=== PATIENT | male | born 2000 | race Two or more races ===

== ENCOUNTER 2023-11-01 17:31 | Observation (INO) ==
[2023-11-01] MEDS ORDERED: NS 1,000 ML IV 1,000 ML ONE (17:50)
--- NOTE | 2023-11-01 17:53 | DR.ABDMALE ---
HPI Time seen Time Seen by Provider: 11/01/23 17:47 PCP Primary Care Physician: NFD Complaint Chief Complaint Doctors Comments: 23-year-old male presents for evaluation. Gradual onset of abdominal pain 2 days ago. Pain has become more steady, worsened today. Pain located in the right lower quadrant, does not radiate. Pain is worse with palpation, movement and hitting bumps in the car. Nothing makes it better. He has had decreased appetite over the past 2 days. Denies fever, chills, upper respiratory symptoms, bowel or bladder issues. No history of abdominal surgeries in the past. Chief Complaint:: Pt states that she has had right lower quadrant pain since monday. He states that he vomited x5 on monday but none since then. Pt states that he has used tylenol and woodrow-seltzer without relief. COVID-19 Coronavirus risk:travel/contact w/high risk person: No Has patient experienced Coronavirus symptoms: No Reviewed Nurses Notes Review: Yes Source History provided by:: Patient Mode of arrival Mode of Arrival: Ambulatory Timing Onset of Chief Complaint: 10/30/23 PMH PMH Past Medical History: No Past Surgical History: Yes Surgical History: Ortho Surgery Family History History of Family Medical Conditions: No Social History Does patient currently use any type of tobacco product: Yes Have you used tobacco products in the last 12 months: Yes Type of Tobacco Use: Vape Does any household member use tobacco: No Alcohol Use: None Do you use any recreational Drugs:: No Lives With: Family Lives Where: Home Travel Risk Coronavirus risk:travel/contact w/high risk person: No Has patient experienced Coronavirus symptoms: No Infectious screening Have you traveled outside the country in the last 6 months?: No Isolation: Standard ROS Review of Systems Constitutional: No Symptoms Reported Eyes: No Symptoms Reported ENTM: No Symptoms Reported Respiratoy: No Symptoms Reported Cardiovascular: No Symptoms Reported Gastrointestinal/Abdominal: See HPI Genitourinary: No Symptoms Reported Neurological: No Symptoms Reported Musculoskeletal: No Symptoms Reported Integumentary: No Symptoms Reported Hematologic/Lymphatic: No Symptoms Reported All Other Systems: Reviewed and Negative PE Vital Signs Vital Signs: Temp Pulse Pulse Resp BP BP Pulse Ox 11/01/23 17:31 111/80 11/01/23 17:31 98.4 F 110 H 20 125/61 99 11/01/23 17:31 98.4 F 110 H 20 125/61 99 O2 Del Method 11/01/23 17:31 11/01/23 17:31 11/01/23 17:31 Room Air General General Appearance: Alert and In No Apparent Distress Eyes Eye exam: PERRL and EOMI ENT ENT Exam: Mucous Membranes Moist Neck Neck Exam: Normal Inspection Respiratory Respiratory Exam: Normal Lung Sounds Bilat; negative Accessory Muscle Use or Respiratory Distress Cardiovascular Cardiovascular Exam: Regular Rate, Normal Rhythm and Normal Heart Sounds Abdominal Exam Abdominal Exam: Normal Bowel Sounds, Soft and Tenderness (Right lower quadrant, with guarding and rebound, both direct and indirect rebound) Back Back Exam: Normal Inspection Extremeties Extremities Exam: Normal Inspection and Full ROM; negative Edema Neurologic Neurological Exam: Alert, Oriented X3 and CN II-XII Intact; negative Motor Sensory Deficit Skin Skin Exam: Warm and Dry COURSE Treatment Treatment: 23-year-old male with worsening right lower quadrant pain over the past 2 days. Marked guarding and rebound of the right lower quadrant. Presentation highly concerning for acute appendicitis. Workup initiated. Patient instructed to remain n.p.o., ate pizza prior to arrival. Patient given IV fluids. 1847 -labs showed elevated white count. CT of the abdomen pelvis o btained.. Appears to have inflammation of the right lower quadrant with an appendicolith present to me. On-call surgery, Dr. Bansal, made aware. Coming to see the patient after he finishes a procedure. [id number] - seen by Dr Bansal, will be going to the OR. [facility] Labs Reviewed Laboratory Results Reviewed?: Yes 11/01/23 17:55 11/01/23 17:55 Laboratory: WBC 19.7 X10^3/uL (3.6-10.0) H 11/01/23 17:55 RBC 5.34 X10^6/uL (4.7-6.0) 11/01/23 17:55 Hgb 14.6 g/dL (13.5-18.0) 11/01/23 17:55 Hct 42.4 % (42.0-54.0) 11/01/23 17:55 MCV 79.4 fL (80.0-100.0) L 11/01/23 17:55 MCH 27.4 pg (27.0-34.0) 11/01/23 17:55 MCHC 34.5 g/dL (33.0-35.0) 11/01/23 17:55 RDW 15.0 % (11.6-16.5) 11/01/23 17:55 Plt Count 208 X10^3/uL (150.0-450.0) 11/01/23 17:55 MPV 8.5 fL (7.4-11.0) 11/01/23 17:55 Neut % (Auto) 85.7 % (42.0-75.0) H 11/01/23 17:55 Lymph % (Auto) 8.9 % (21.0-51.0) L 11/01/23 17:55 [place] % (Auto) 5.0 % (0.0-13.0) 11/01/23 17:55 Eos % (Auto) 0.2 % (0.9-2.9) L 11/01/23 17:55 Baso % (Auto) 0.2 % (0.2-1.0) 11/01/23 17:55 Neut # (Auto) 16.9 x10^3/uL (2.2-4.8) H 11/01/23 17:55 Lymph # (Auto) 1.7 X10^3/uL (1.3-2.9) 11/01/23 17:55 [place] # (Auto) 1.0 x10^3/uL (0.3-0.8) H 11/01/23 17:55 Eos # (Auto) 0.0 x10^3/uL (0.0-0.2) 11/01/23 17:55 Baso # (Auto) 0.0 X10^3/uL (0.0-0.1) 11/01/23 17:55 Absolute Nucleated RBC 0.0 /100WBC 11/01/23 17:55 Sodium 137 mmol/L (136-145) 11/01/23 17:55 Corrected Sodium TNP 11/01/23 17:55 Potassium 3.8 mmol/L (3.5-5.1) 11/01/23 17:55 Chloride 101 mmol/L (98-107) 11/01/23 17:55 Carbon Dioxide 30.2 mmol/L (21-32) 11/01/23 17:55 BUN 8 mg/dL (7-18) 11/01/23 17:55 Creatinine 0.82 mg/dL (0.70-1.30) 11/01/23 17:55 Est GFR (MDRD) Af Amer > 60 (>60) 11/01/23 17:55 Est GFR (MDRD) Non-Af > 60 (>60) 11/01/23 17:55 Glucose 110 mg/dL (65-99) H 11/01/23 17:55 Calcium 8.9 mg/dL (8.5-10.1) 11/01/23 17:55 Corrected Calcium TNP 11/01/23 17:55 Total Bilirubin 2.80 mg/dL (0.2-1.0) H 11/01/23 17:55 AST 17 Units/L (15-37) 11/01/23 17:55 ALT 30 Units/L (12-78) 11/01/23 17:55 Alkaline Phosphatase 57 Units/L (46-116) 11/01/23 17:55 Total Protein 7.8 g/dL (6.4-8.2) 11/01/23 17:55 Albumin 3.7 g/dL (3.4-5.0) 11/01/23 17:55 Globulin 4.1 g/dL (2.5-4.5) 11/01/23 17:55 Albumin/Globulin Ratio 0.9 Ratio (1.1-2.1) L 11/01/23 17:55 Lipase 56 Units/L (16-77) 11/01/23 17:55 White count elevated to 19,000 XRAY XRAY Interpreted by: Both X-ray Results: EXAM: ABDOMEN/PELVIS W/O CON HISTORY: right lower quadrant pain since monday. He states that he vomited x5 on monday but none since then. Pt states that he has used tylenol and woodrow-seltzer without relief.; COMPARISON: None. TECHNIQUE: Nonenhanced spiral CT imaging was performed through the abdomen and pelvis and axial, coronal, and sagittal CT images were generated. FINDINGS: The lung bases are clear without effusion. Heart size is normal. The liver, gallbladder, pancreas, adrenal glands are normal. The spleen is enlarged at 15.8 cm. The kidneys are both normal in size and there is no renal mass, stone, or hydronephrosis. There is mild urinary bladder wall thickening. Prostate is normal. The stomach is normal. Most of the small bowel loops are normal. There is inflammation of the terminal ileum and also of the appendix and the cecum. There is inflammation in the fat in this area. This appears to be acute appendicitis but the differential includes Crohn's disease. Large bowel loops are normal. The bones are normal. IMPRESSION: Fairly severe inflammation in the right lower quadrant and the epicenter appears to be appendicitis. Differential includes Crohn's disease or infectious ileocecal hiatus. THIS IS AN ELECTRONICALLY VERIFIED FINAL REPORT 11/01/2023 7:13 PM - Electronically signed by Foster Baker MD Opioid Opioid Risk Tool Age (Alin box if 16-45): Yes History of Preadolescent Sexual Abuse: No Total: 1 Total Score Risk Category: Low Risk Copyright: Lew BERNARD predicting aberrant behaviors Discharge Plan Diagnosis Discharge Problem: Acute appendicitis Discharge Plan Patient Disposition: ADMITTED INPATIENT Condition: Stable Prescriptions: No Action [facility] Concerns: Post Hospitalization: new medications and changes needed to prevent readmission or further decline. Pt educated and given instructions on all concerns. Plan of Treatment: Continue with present treatment and follow up plan. Pt is to keep follow up appointment as instructed and take medications as ordered. Follow ups/Referrals Follow ups/Referrals: NFD,None [Primary Care Provider] - 3 days Instructions Instructions: Laparoscopic Appendectomy, Adult, Care After, [id number], Appendicitis, Adult, [id number] Print Language: MONGOLIAN
[2023-11-01] MEDS: NS 1,000 ML IV 1,000 ML IV ONE (17:57)
[2023-11-01 18:06] LABS: BASOPHILS % (AUTO) 0.2 % (0.2-1.0); EOSINOPHILS % (AUTO) 0.2 % (0.9-2.9); HEMATOCRIT 42.4 % (42.0-54.0); HEMOGLOBIN 14.6 g/dL (13.5-18.0); LYMPHOCYTES # (AUTO) 1.7 X10^3/uL (1.3-2.9); LYMPHOCYTES % (AUTO) 8.9 % (21.0-51.0); MEAN CORPUSCULAR HEMOGLOBIN 27.4 pg (27.0-34.0); MEAN CORPUSCULAR HGB CONC 34.5 g/dL (33.0-35.0); MEAN CORPUSCULAR VOLUME 79.4 fL (80.0-100.0); MEAN PLATELET VOLUME 8.5 fL (7.4-11.0); NEUTROPHILS # (AUTO) 16.9 x10^3/uL (2.2-4.8); NEUTROPHILS % (AUTO) 85.7 % (42.0-75.0); PLATELET COUNT 208 X10^3/uL (150.0-450.0); RED BLOOD COUNT 5.34 X10^6/uL (4.7-6.0); WHITE BLOOD COUNT 19.7 X10^3/uL (3.6-10.0)
[2023-11-01 18:26] LABS: ALANINE AMINOTRANSFERASE 30 Units/L (12-78); ALBUMIN 3.7 g/dL (3.4-5.0); ALKALINE PHOSPHATASE 57 Units/L (46-116); ASPARTATE AMINO TRANSFERASE 17 Units/L (15-37); BLOOD UREA NITROGEN 8 mg/dL (7-18); CALCIUM 8.9 mg/dL (8.5-10.1); CARBON DIOXIDE 30.2 mmol/L (21-32); CHLORIDE 101 mmol/L (98-107); CREATININE 0.82 mg/dL (0.70-1.30); GLUCOSE 110 mg/dL (65-99); LIPASE 56 Units/L (16-77); POTASSIUM 3.8 mmol/L (3.5-5.1); SODIUM 137 mmol/L (136-145); TOTAL PROTEIN 7.8 g/dL (6.4-8.2); eGFR NON BLACK RACES > 60 (>60)
[2023-11-01] MEDS: VERSED ONE (19:07)
[2023-11-01] MEDS: FENTANYL VIAL INJ 250 mcg ONE (19:09)
[2023-11-01] MEDS: PEPCID 20 MG VIAL ONE (19:10)
[2023-11-01] MEDS: REGLAN INJ 10 MG VIAL ONE (19:10)
[2023-11-01] MEDS: DIPRIVAN VIAL 20 ML ONE (19:10)
[2023-11-01] MEDS: ZOFRAN INJ 4 MG VIAL ONE (19:10)
[2023-11-01] MEDS: ZEMURON 100 MG VIAL ONE (19:11)
[2023-11-01] MEDS: BRIDION ONE (19:11)
[2023-11-01] MEDS: QUELICIN (OR ANECTINE) ONE (19:11)
--- NOTE | 2023-11-01 19:17 | CT ---
EXAM:ABDOMEN/PELVIS W/O CONHISTORY:right lower quadrant pain since monday. He states that he vomited x5 on monday but none since then. Pt states that he has used tylenol and woodrow-seltzer without relief.;COMPARISON:None.TECHNIQUE:Nonenh anced spiral CT imaging was performed through the abdomen and pelvis and axial, coronal, and sagittal CT images were generated.FINDINGS:The lung bases are clear without effusion. Heart size is normal. The liver, gallbladder, pancreas, adrenal glands are normal. The spleen is enlarged at 15.8 cm. The kidneys are both normal in size and there is no renal mass, stone, or hydronephrosis. There is mild urinary bladder wall thickening. Prostate is normal. The stomach is normal. Most of the small bowel loops are normal. There is inflammation of the terminal ileum and also of the appendix and the cecum. There is inflammation in the fat in this area. This appears to be acute appendicitis but the differential includes Crohn's disease. Large bowel loops are normal. The bones are normal.IMPRESSION:Fairly severe inflammation in the right lower quadrant and the epicenter appears to be appendicitis. Differential includes Crohn's disease or infectious ileocecal hiatus.THIS IS AN ELECTRONICALLY VERIFIED FINAL REPORT11/01/2023 7:13 PM - Electronically signed by Foster Baker MD
[2023-11-01] MEDS: ANCEF VIAL 1 GRAM ONE (19:18)
[2023-11-01] MEDS: LR 1,000 ML IV 1,000 ML IV ONE (19:18)
[2023-11-01] MEDS: NS 100 ML IV 100 ML ONE (19:19)
--- NOTE | 2023-11-01 19:22 | DR.H&P ---
H&P History & Physical for Day of: H&P Date: 11/01/23 Chief Complaint Chief Complaint: right lower quadrant pain and tenderness History of Present Illness History of Present Illness: 23 yo male with onset 2 days before of epigastric pain now relocated to right lower quadrant with nausea and vomiting .Last ate a piece of pizza 5 hours previously. No other significant past medical problems .Seen in ER and CT scan consistetn with acute appendicitis . Past Surgical History Surgical History: Ortho Surgery Social History Does patient currently use any type of tobacco product: Yes Have you used tobacco products in the last 12 months: Yes Type of Tobacco Use: Vape Does any household member use tobacco: No Alcohol Use: None Medications Home Medications: Home Medications Medication Instructions Recorded Confirmed Type NK 09/17/19 11/01/23 History Allergies Allergies Allergy/AdvReac Type Severity Reaction Status Date / Time No Known Allergies Allergy Verified 11/01/23 17:46 Labs 11/01/23 17:55 11/01/23 17:55 Labs: Laboratory WBC 19.7 X10^3/uL (3.6-10.0) H 11/01/23 17:55 RBC 5.34 X10^6/uL (4.7-6.0) 11/01/23 17:55 Hgb 14.6 g/dL (13.5-18.0) 11/01/23 17:55 Hct 42.4 % (42.0-54.0) 11/01/23 17:55 MCV 79.4 fL (80.0-100.0) L 11/01/23 17:55 MCH 27.4 pg (27.0-34.0) 11/01/23 17:55 MCHC 34.5 g/dL (33.0-35.0) 11/01/23 17:55 RDW 15.0 % (11.6-16.5) 11/01/23 17:55 Plt Count 208 X10^3/uL (150.0-450.0) 11/01/23 17:55 MPV 8.5 fL (7.4-11.0) 11/01/23 17:55 Neut % (Auto) 85.7 % (42.0-75.0) H 11/01/23 17:55 Lymph % (Auto) 8.9 % (21.0-51.0) L 11/01/23 17:55 [place] % (Auto) 5.0 % (0.0-13.0) 11/01/23 17:55 Eos % (Auto) 0.2 % (0.9-2.9) L 11/01/23 17:55 Baso % (Auto) 0.2 % (0.2-1.0) 11/01/23 17:55 Neut # (Auto) 16.9 x10^3/uL (2.2-4.8) H 11/01/23 17:55 Lymph # (Auto) 1.7 X10^3/uL (1.3-2.9) 11/01/23 17:55 [place] # (Auto) 1.0 x10^3/uL (0.3-0.8) H 11/01/23 17:55 Eos # (Auto) 0.0 x10^3/uL (0.0-0.2) 11/01/23 17:55 Baso # (Auto) 0.0 X10^3/uL (0.0-0.1) 11/01/23 17:55 Absolute Nucleated RBC 0.0 /100WBC 11/01/23 17:55 Sodium 137 mmol/L (136-145) 11/01/23 17:55 Corrected Sodium TNP 11/01/23 17:55 Potassium 3.8 mmol/L (3.5-5.1) 11/01/23 17:55 Chloride 101 mmol/L (98-107) 11/01/23 17:55 Carbon Dioxide 30.2 mmol/L (21-32) 11/01/23 17:55 BUN 8 mg/dL (7-18) 11/01/23 17:55 Creatinine 0.82 mg/dL (0.70-1.30) 11/01/23 17:55 Est GFR (MDRD) Af Amer > 60 (>60) 11/01/23 17:55 Est GFR (MDRD) Non-Af > 60 (>60) 11/01/23 17:55 Glucose 110 mg/dL (65-99) H 11/01/23 17:55 Calcium 8.9 mg/dL (8.5-10.1) 11/01/23 17:55 Corrected Calcium TNP 11/01/23 17:55 Total Bilirubin 2.80 mg/dL (0.2-1.0) H 11/01/23 17:55 AST 17 Units/L (15-37) 11/01/23 17:55 ALT 30 Units/L (12-78) 11/01/23 17:55 Alkaline Phosphatase 57 Units/L (46-116) 11/01/23 17:55 Total Protein 7.8 g/dL (6.4-8.2) 11/01/23 17:55 Albumin 3.7 g/dL (3.4-5.0) 11/01/23 17:55 Globulin 4.1 g/dL (2.5-4.5) 11/01/23 17:55 Albumin/Globulin Ratio 0.9 Ratio (1.1-2.1) L 11/01/23 17:55 Lipase 56 Units/L (16-77) 11/01/23 17:55 Review of Systems Constitutional: See HPI Eyes: No Symptoms Reported ENT: No Symptoms Reported Respiratory: No Symptoms Reported Cardiovascular: No Symptoms Reported Gastrointestinal: See HPI Genitourinary: No Symptoms Reported Musculoskeletal: No Symptoms Reported Skin: No Symptoms Reported and See HPI Neurological: No Symptoms Reported Physical Exam Vital Signs: Vital Signs Temperature 98.4 F Temperature 98.4 F Pulse Rate [Left] 110 Pulse Rate 110 Respiratory Rate 20 Respiratory Rate 20 Blood Pressure [Left Arm] 125/61 Blood Pressure 111/80 Blood Pressure 125/61 O2 Sat by Pulse Oximetry 99 O2 Sat by Pulse Oximetry 99 Oriented: Normal, Time, Person and Place Eyes: Normal Ear: Normal Nose: Normal Throat: Normal Respiratory: Clear Throughout Cardiovascular: Normal : Normal Auscultation: Bowel Sounds: Normal Palpation: Spleen Enlarged (Rovsing's sign , rebound RLQ with pain referre to the RLQ) and Other Tenderness: RLQ, Rebound and Guarding Skin: Normal Musculoskeletal: Normal Psychiatric: Normal Mood Description: Anxious Affect: Anxious Speech Pattern: Clear and Appropriate Assessment/Plan (1) Acute appendicitis: Status: Acute Plan: Plan laparoscopic appendectomy, Risks and benefits discussed including perforation, leak and small possibility of having to convert to open appendectomy. He understands and agrees to proceed. Review H&P Reviewed: Yes Patient was examined?: Yes
[2023-11-01] MEDS: MARCAINE 0.5% ONE (19:48)
[2023-11-01] MEDS ORDERED: REGLAN INJ 10 MG VIAL IVP PRN (20:18)
[2023-11-01] MEDS ORDERED: BARHEMSYS INJ IVP PRN (20:18)
[2023-11-01] MEDS ORDERED: BENADRYL INJ 50 MG VIAL IVP PRN (20:18)
[2023-11-01] MEDS ORDERED: ZOFRAN INJ 4 MG VIAL IVP PRN (20:18)
--- NOTE | 2023-11-01 20:21 | OR.IMMED ---
IMMEDIATE POST-OP NOTE Immediate Post-Op Note Date of surgery/procedure: 11/01/23 Pre-Op Diagnosis: Acute appendicitis Post-Op Diagnosis: ruptured appendicitis Procedure: laparoscopic appendectomy Description of Procedure: dictated Surgeon/Trimmer Climber: Rolf Findings: as above Estimated Blood Loss: < 25 cc Drains: Tulio Fu (, #10 NATALIE drain in RLQ) Complications: none Progress Notes: to floor, antibiotics, pain control and diet
[2023-11-01] MEDS: DILAUDID INJ IVP PRN (20:29)
[2023-11-01] MEDS: LR 1,000 ML IV 1,000 ML IV SCH (21:14)
[2023-11-01] MEDS: PERCOCET TAB 5/325 MG PO PRN (21:22)
[2023-11-01 21:26] VITALS: BMI 41.1
[2023-11-01] MEDS: CIPRO TAB 500 MG PO SCH (21:56)
[2023-11-02 02:11] LABS: BILIRUBIN,URINE 1+ (NEGATIVE); BLOOD/HEMOGLOBIN,URINE 1+ (NEGATIVE); GLUCOSE, URINE NEGATIVE (NEGATIVE); KETONES,URINE 3+ (NEGATIVE); LEUKOCYTE ESTERASE ,URINE 1+ (NEGATIVE); NITRITES,URINE NEGATIVE (NEGATIVE); PROTEIN,URINE 2+ (NEGATIVE); UROBILINOGEN,URINE 4+ (NORMAL)
[2023-11-02 02:22] LABS: APPEARANCE,URINE CLOUDY (CLEAR); COLOR,URINE ORANGE (YELLOW)
[2023-11-02 02:23] LABS: BACTERIA,URINE TRACE /HPF (NEGATIVE); SQUAMOUS EPITHELIAL CELL,UR MANY /HPF (NEGATIVE)
[2023-11-02 02:24] LABS: COARSE GRANULAR CASTS,URINE RARE /HPF (NEGATIVE); YEAST,URINE RARE /HPF (NEGATIVE)
--- NOTE | 2023-11-02 12:00 | W.DIS.FURT ---
Summary of Discharge Discharge Summary of Date Date of Exam: 11/02/23 Admission Date Date of Admission: 11/01/23 Admission Diagnosis Patient Problems (Updated 11/01/23 @ 18:49 by Christiano Wilson) Acute appendicitis (Acute) K35.80 Hospital Course: This is a 23 year old male who presented with 2-day history of abdominal pain beginning in the epigastrium and relocated to the right lower quadrant. White blood cell count 19,[address] scan consistent with acute appendicitis .He was taken urgently to the operating room where he was discovered to have ruptured appendicitis and underwent an uncomplicated laparoscopic appendectomy. Tulio Fu drain was left in place. He has done well and is tolerating a diet. He will be discharged today with the drain in place and follow up with me in 5 days. He will continue Percocet 5 milligram tablets, 1 every 6 hours PRN pain and Cipro ,500 milligrams BID. He will be instructed how to care for the drain and record its drainage. Vital Signs: Vital Signs (72 hours) 11/01/23 17:31 11/01/23 17:31 11/01/23 19:44 Temperature 98.4 F 98.4 F 98.4 F Pulse Rate 110 H 93 H Pulse Rate [Left] 110 H Respiratory Rate 20 20 18 Blood Pressure 125/61 132/66 Blood Pressure [Left Arm] 125/61 O2 Sat by Pulse Oximetry 99 99 99 Oxygen Delivery Method Room Air Room Air 11/01/23 20:26 11/01/23 20:31 11/01/23 20:36 Temperature 98.6 F Pulse Rate 102 H 102 H 99 H Pulse Rate [Left] Respiratory Rate 22 20 18 Blood Pressure 162/74 135/64 143/62 Blood Pressure [Left Arm] O2 Sat by Pulse Oximetry 100 100 98 Oxygen Delivery Method Aerosol Face Tent Aerosol Face Tent Room Air 11/01/23 20:29 11/01/23 20:34 11/01/23 20:39 Temperature Pulse Rate Pulse Rate [Left] Respiratory Rate 20 18 18 Blood Pressure Blood Pressure [Left Arm] O2 Sat by Pulse Oximetry Oxygen Delivery Method 11/01/23 20:41 11/01/23 20:46 11/01/23 20:51 Temperature Pulse Rate 101 H 97 H 96 H Pulse Rate [Left] Respiratory Rate 18 18 18 Blood Pressure 135/62 129/58 129/60 Blood Pressure [Left Arm] O2 Sat by Pulse Oximetry 98 96 100 Oxygen Delivery Method Room Air Room Air Nasal Cannula 11/01/23 20:56 11/01/23 21:22 11/02/23 01:03 Temperature Pulse Rate 95 H Pulse Rate [Left] Respiratory Rate 18 18 18 Blood Pressure 129/55 Blood Pressure [Left Arm] O2 Sat by Pulse Oximetry 100 Oxygen Delivery Method Nasal Cannula 11/02/23 05:02 11/01/23 20:44 11/01/23 21:00 Temperature 98.4 F Pulse Rate Pulse Rate [Left] 98 H Respiratory Rate 18 18 Blood Pressure Blood Pressure [Left Arm] 115/61 O2 Sat by Pulse Oximetry 99 Oxygen Delivery Method Room Air 11/01/23 21:15 11/01/23 21:30 11/01/23 21:45 Temperature 98.3 F 99.5 F 99.0 F Pulse Rate Pulse Rate [Left] 100 H 97 H 100 H Respiratory Rate 21 19 18 Blood Pressure Blood Pressure [Left Arm] 132/61 129/55 130/61 O2 Sat by Pulse Oximetry 100 97 100 Oxygen Delivery Method 11/01/23 22:00 11/01/23 22:22 11/01/23 23:00 Temperature 100.2 F H 99.1 F Pulse Rate Pulse Rate [Left] 100 H 112 H Respiratory Rate 20 18 20 Blood Pressure Blood Pressure [Left Arm] 128/55 127/58 O2 Sat by Pulse Oximetry 100 99 Oxygen Delivery Method 11/02/23 00:00 11/02/23 00:00 11/02/23 01:00 Temperature 98.1 F 98.1 F 97.6 F Pulse Rate Pulse Rate [Left] 111 H 111 H 94 H Respiratory Rate 18 18 16 Blood Pressure Blood Pressure [Left Arm] 125/60 125/60 112/59 O2 Sat by Pulse Oximetry 97 97 97 Oxygen Delivery Method 11/02/23 02:00 11/02/23 02:03 11/02/23 04:00 Temperature 99.5 F 99.0 F Pulse Rate Pulse Rate [Left] 97 H 104 H Respiratory Rate 18 18 18 Blood Pressure Blood Pressure [Left Arm] 115/57 112/61 O2 Sat by Pulse Oximetry 96 98 Oxygen Delivery Method 11/02/23 04:00 11/02/23 06:02 11/02/23 08:00 Temperature 99.0 F 98.5 F Pulse Rate Pulse Rate [Left] 104 H 88 Respiratory Rate 18 18 19 Blood Pressure Blood Pressure [Left Arm] 112/61 126/59 O2 Sat by Pulse Oximetry 98 100 Oxygen Delivery Method Room Air Room Air 11/02/23 07:00 11/01/23 17:31 Temperature Pulse Rate Pulse Rate [Left] Respiratory Rate Blood Pressure 111/80 Blood Pressure [Left Arm] O2 Sat by Pulse Oximetry Oxygen Delivery Method Room Air Labs: Laboratory Last Values WBC 19.7 X10^3/uL (3.6-10.0) H 11/01/23 17:55 RBC 5.34 X10^6/uL (4.7-6.0) 11/01/23 17:55 Hgb 14.6 g/dL (13.5-18.0) 11/01/23 17:55 Hct 42.4 % (42.0-54.0) 11/01/23 17:55 MCV 79.4 fL (80.0-100.0) L 11/01/23 17:55 MCH 27.4 pg (27.0-34.0) 11/01/23 17:55 MCHC 34.5 g/dL (33.0-35.0) 11/01/23 17:55 RDW 15.0 % (11.6-16.5) 11/01/23 17:55 Plt Count 208 X10^3/uL (150.0-450.0) 11/01/23 17:55 MPV 8.5 fL (7.4-11.0) 11/01/23 17:55 Neut % (Auto) 85.7 % (42.0-75.0) H 11/01/23 17:55 Lymph % (Auto) 8.9 % (21.0-51.0) L 11/01/23 17:55 [place] % (Auto) 5.0 % (0.0-13.0) 11/01/23 17:55 Eos % (Auto) 0.2 % (0.9-2.9) L 11/01/23 17:55 Baso % (Auto) 0.2 % (0.2-1.0) 11/01/23 17:55 Neut # (Auto) 16.9 x10^3/uL (2.2-4.8) H 11/01/23 17:55 Lymph # (Auto) 1.7 X10^3/uL (1.3-2.9) 11/01/23 17:55 [place] # (Auto) 1.0 x10^3/uL (0.3-0.8) H 11/01/23 17:55 Eos # (Auto) 0.0 x10^3/uL (0.0-0.2) 11/01/23 17:55 Baso # (Auto) 0.0 X10^3/uL (0.0-0.1) 11/01/23 17:55 Absolute Nucleated RBC 0.0 /100WBC 11/01/23 17:55 Sodium 137 mmol/L (136-145) 11/01/23 17:55 Corrected Sodium TNP 11/01/23 17:55 Potassium 3.8 mmol/L (3.5-5.1) 11/01/23 17:55 Chloride 101 mmol/L (98-107) 11/01/23 17:55 Carbon Dioxide 30.2 mmol/L (21-32) 11/01/23 17:55 BUN 8 mg/dL (7-18) 11/01/23 17:55 Creatinine 0.82 mg/dL (0.70-1.30) 11/01/23 17:55 Est GFR (MDRD) Af Amer > 60 (>60) 11/01/23 17:55 Est GFR (MDRD) Non-Af > 60 (>60) 11/01/23 17:55 Glucose 110 mg/dL (65-99) H 11/01/23 17:55 Calcium 8.9 mg/dL (8.5-10.1) 11/01/23 17:55 Corrected Calcium TNP 11/01/23 17:55 Total Bilirubin 2.80 mg/dL (0.2-1.0) H 11/01/23 17:55 AST 17 Units/L (15-37) 11/01/23 17:55 ALT 30 Units/L (12-78) 11/01/23 17:55 Alkaline Phosphatase 57 Units/L (46-116) 11/01/23 17:55 Total Protein 7.8 g/dL (6.4-8.2) 11/01/23 17:55 Albumin 3.7 g/dL (3.4-5.0) 11/01/23 17:55 Globulin 4.1 g/dL (2.5-4.5) 11/01/23 17:55 Albumin/Globulin Ratio 0.9 Ratio (1.1-2.1) L 11/01/23 17:55 Lipase 56 Units/L (16-77) 11/01/23 17:55 Specimen Type Clean catch urine 11/02/23 02:00 Urine Color [place] (YELLOW) 11/02/23 02:00 Urine Appearance Cloudy (CLEAR) 11/02/23 02:00 Urine pH 6.0 (5.0 - 8.0) 11/02/23 02:00 Ur Specific [place] 1.025 (1.000-1.030) 11/02/23 02:00 Urine Protein 2+ (NEGATIVE) 11/02/23 02:00 Urine Glucose (UA) Negative (NEGATIVE) 11/02/23 02:00 Urine Ketones 3+ (NEGATIVE) 11/02/23 02:00 Urine Blood 1+ (NEGATIVE) 11/02/23 02:00 Urine Nitrite Negative (NEGATIVE) 11/02/23 02:00 Urine Bilirubin 1+ (NEGATIVE) 11/02/23 02:00 Urine Urobilinogen 4+ (NORMAL) 11/02/23 02:00 Ur Leukocyte Esterase 1+ (NEGATIVE) 11/02/23 02:00 Urine RBC 3-5 /HPF (0-3) A 11/02/23 02:00 Urine WBC 5-10 /HPF (0-5) A 11/02/23 02:00 Ur Squamous Epith Cells Many /HPF (NEGATIVE) 11/02/23 02:00 Amorphous Sediment 1+ /HPF (NEGATIVE) 11/02/23 02:00 Urine Bacteria Trace /HPF (NEGATIVE) 11/02/23 02:00 Coarse Granular Casts Rare /HPF (NEGATIVE) 11/02/23 02:00 Urine Mucus Many /HPF (NEGATIVE) 11/02/23 02:00 Urine Yeast Rare /HPF (NEGATIVE) 11/02/23 02:00 Ur Culture Indicated? No/not indicated 11/02/23 02:00 Reason For Visit: APPENDICITIS WITH RUPTURE Discharge Date Discharge Date: 11/02/23 Discharge Diagnosis All Active Problems (Updated 11/01/23 @ 18:49 by Christiano Grotz) Abdominal pain (Acute) Chest pain (Acute) Acute appendicitis (Acute) Abdominal pain (Acute) Plan of Treatment: Continue with present treatment and follow up plan. Pt is to keep follow up appointment as instructed and take medications as ordered. Discharge Medications Discharge Medications: No Known Allergies Allergy (Verified 11/01/23 17:46) Discharge Disposition Assessment: see hospital course Discharge Plan Discharge Plan Hospital Course: This is a 23 year old male who presented with 2-day history of abdominal pain beginning in the epigastrium and relocated to the right lower quadrant. White blood cell count 19,[address] scan consistent with acute appendicitis .He was taken urgently to the operating room where he was discovered to have ruptured appendicitis and underwent an uncomplicated laparoscopic appendectomy. Tulio Fu drain was left in place. He has done well and is tolerating a diet. He will be discharged today with the drain in place and follow up with me in 5 days. He will continue Percocet 5 milligram tablets, 1 every 6 hours PRN pain and Cipro ,500 milligrams BID. He will be instructed how to care for the drain and record its drainage. Patient Disposition: 01 HOME, SELF-CARE Condition: Stable Health Concerns: Post Hospitalization: new medications and changes needed to prevent readmission or further decline. Pt educated and given instructions on all concerns. Care Plan Goals: Problem: Infection Goal: Temperature within normal limits. Resolved infection. Instructions: Follow provided instructions. Follow up with primary physician as directed. Contact primary care physician or report to the closest Emergency Room if condition worsens. Plan of Treatment: Continue with present treatment and follow up plan. Pt is to keep follow up appointment as instructed and take medications as ordered. Assessment: see hospital course Prescription drug monitoring program results: PDMP reviewed and no concerns identified Prescriptions: New ciprofloxacin HCl [Cipro] 500 mg tablet 500 mg PO BID Qty: 14 0RF oxycodone-acetaminophen [Percocet] 5-325 mg tablet 1 tab PO Q6H MDD 4 PRNQty: 20 0RF Orders to Discharge Patient Discharge Orders: Discharge (Routine); Ordered 11/02/23 Ordered By: Zak Bansal Follow ups/Referrals Follow ups/Referrals: Zak Bansal [STAFF PHYSICIAN] - 11/08/23 4:00 pm Instructions Instructions: Form - Surgical Drain Record, How to Use an Incentive Spirometer, Soft-Food Eating Plan, Laparoscopic Appendectomy, Adult, Care After, [id number], Sutures, [place], or Adhesive Wound Closure, [id number], Preventing Problems After Surgery, Appendicitis, Adult, [id number]-[id number], How to Prevent Constipation After Surgery Activity Restrictions/Additional Instructions: Empty NATALIE drain as needed daily. Keep incision site clean and dry. Contact Dr. Bansal with any concerns. Take medication as directed. Stand Alone Forms: Excuse From Work or School, Post Hospital Follow Up Care Print Language: ICELANDIC
[2023-11-02 12:16] VITALS: BP 116/55; PULSE 96; RESP 20; TEMP 98.4; O2SAT 99
== END 2023-11-02 12:05 | disposition home or self-care (01) ==
LOC: ER 17:31 → MED/SURG 17:31 → INTOOBSV 20:21 → OBSVTOIN 20:21 → MED/SURG 20:40
PROVIDERS: ADMIT Surgery; ATTEND Surgery
PROC: APPYLAP (ICD-10-PCS; 2023-11-01 20:15)
DX: R10.31 Right lower quadrant pain; K35.32 Acute appendicitis with perforation, localized peritonitis, and gangrene, without abscess